=== PATIENT | male | born 1980 | race Caucasian/White ===

== ENCOUNTER 2023-08-31 15:35 | Outpatient (CLI) | payer BC, OTHER ==
[~2023-08-31] VITALS: Ht 172.7 cm; Wt 90.7 kg
[2023-08-31] MEDS ORDERED: albuterol 2.5 MG/3 ML nebule NEB ONE (15:55)
[2023-08-31 16:04] VITALS: PULSE 92; RESP 15; O2SAT 99
== END 2023-08-31 23:59 | disposition home or self-care (01) ==
LOC: RT 15:35
PROVIDERS: ATTEND Physician Assistant Medical
DX: R94.2 Abnormal results of pulmonary function studies (principal); R05.9 Cough, unspecified; R06.2 Wheezing
CPT/HCPCS: 94060; 94760

== ENCOUNTER 2024-01-17 08:38 | Day surgery (SDC) | payer BC ==
[2024-01-10 16:10] LABS: BASOPHILS # (AUTO) 0.1 X10'3 (0-0.2); BASOPHILS % (AUTO) 0.8 % (0-1); EOSINOPHILS # (AUTO) 0.5 X10'3 (0-0.9); EOSINOPHILS % (AUTO) 5.7 % (0-6); LYMPHOCYTES # (AUTO) 3.4 X10'3 (1.1-4.8); LYMPHOCYTES % (AUTO) 38.5 % (21-51); MEAN CORPUSCULAR HGB CONC 33.4 g/dL (33.0-36.5); MEAN CORPUSCULAR VOLUME 83.9 FL (78-98); MEAN PLATELET VOLUME 6.2 FL (7.4-10.4); MONOCYTES # (AUTO) 0.6 X10'3 (0-0.9); MONOCYTES % (AUTO) 6.5 % (2-12); NEUTROPHILS # (AUTO) 4.2 X10'3 (1.8-7.7); NEUTROPHILS % (AUTO) 48.5 % (42-75); PRE OP HEMATOCRIT 43.4 % (42.0-52.0); PRE OP HEMOGLOBIN 14.5 g/dL (14.0-17.9); PRE OP PLATELET COUNT 303 X10'3 (140-440); PRE OP WHITE BLOOD COUNT 8.7 10'3 (4.8-10.8); RED BLOOD COUNT 5.17 X10'6 (4.70-6.10); RED CELL DISTRIBUTION WIDTH 14.9 % (11.5-14.5)
[2024-01-10 16:33] LABS: ALBUMIN/GLOBULIN RATIO 1.2 (1.1-1.5); ALKALINE PHOSPHATASE 39 IU/L (46-116); BLOOD UREA NITROGEN 13 MG/DL (7-18); CALCIUM 9.2 MG/DL (8.5-10.1); CHLORIDE 106 MMOL/L (99-107); CREATININE 0.81 MG/DL (0.60-1.10); PRE OP ALT 17 U/L (30-65); PRE OP ANION GAP 4 (8-16); PRE OP AST 12 U/L (10-37); PRE OP BILIRUB, TOTAL 0.7 MG/DL (0.0-1.0); PRE OP GLUCOSE 89 MG/DL (70-104); PRE OP POTASSIUM 3.6 MMOL/L (3.4-5.1); PRE OP SODIUM 141 MMOL/L (135-145); TOTAL CARBON DIOXIDE 31.2 MMOL/L (24-32); TOTAL PROTEIN 7.4 G/DL (6.4-8.2); eGFR > 90 ML/MIN
[~2024-01-17] VITALS: Ht 172.7 cm; Wt 88.8 kg
[2024-01-17] VITALS (14 sets, daily range): BP systolic 115–138; BP diastolic 76–86; PULSE 67–110; RESP 12–26; TEMP 98.2; O2SAT 93–98
[2024-01-17] MEDS: cefazolin 2gm/D5W 100mL 100 ML IV ONE (05:30)
[~2024-01-17 08:38] MED LIST: CALCIUM GUMMY PO; ESOM20CA PO; FIBER GUMMY PO; LORA10CA PO; MULTIVITAMIN GUMMIES PO; ringers solution, lacted 1,000 ML IV SCH
[2024-01-17] MEDS ORDERED: morphine 4 MG/ML inj SYRINge IV PRN (08:50)
[2024-01-17] MEDS ORDERED: fentaNYL/PF 50MCG/1 ML 2ML syringe IV PRN ×2 (08:50)
[2024-01-17] MEDS ORDERED: labetalol 20mg/4ml (5mg/ml) syringe IV PRN (08:50)
[2024-01-17] MEDS ORDERED: morphine 2 MG/ML inj. syringe IV PRN (08:50)
[2024-01-17] MEDS ORDERED: hydrALAZINE 20mg/ml inj. IV PRN (08:50)
[2024-01-17] MEDS ORDERED: ondansetron/PF 4mg/2ml inj IV PRN (08:50)
[2024-01-17] MEDS: ringers solution, lacted 1,000 ML IV SCH (09:06)
[2024-01-17] MEDS: famotidine 20mg tablet PO ONE (09:06)
[2024-01-17] MEDS ORDERED: sevoflurane 250ml liquid IH ONE (09:42)
[2024-01-17] MEDS ORDERED: BUPIVAcaine/PF 2.5mg/ml (0.25%) 10ml vial ONE ×2 (09:43→09:53)
[2024-01-17] MEDS ORDERED: LIDOcaine 1% (10mg/ml)w/preservative inj. 20ml MDV ONE (09:43)
[2024-01-17] MEDS ORDERED: ondansetron/PF 4mg/2ml inj ONE (10:00)
[2024-01-17] MEDS ORDERED: propofol inj 20 ML IV ONE (10:00)
[2024-01-17] MEDS ORDERED: LIDOcaine 2% (20mg/ml) 5ml vial ONE (10:00)
[2024-01-17] MEDS ORDERED: rocuronium 10mg/ml inj IV ONE ×2 (10:00→10:02)
[2024-01-17] MEDS ORDERED: fentaNYL/PF 50MCG/1 ML 2ML syringe ONE ×2 (10:01→11:52)
[2024-01-17] MEDS ORDERED: midazolam 1 mg/ML 2ml injection ONE (10:02)
[2024-01-17] MEDS ORDERED: acetaminophen 1,000mg/100ml IV 100 ML IV ONE (10:03)
[2024-01-17] MEDS ORDERED: phenylephrine 10mg/ml inj. -priapism dosing ONE (10:07)
[2024-01-17] MEDS ORDERED: ePHEDrine 50MG/ML INJ. ONE (10:08)
[2024-01-17] MEDS: LIDOcaine 1% 30ml preserv. free vial IJ ONE (10:23)
[2024-01-17] MEDS ORDERED: neostigmine methylsulfate 1 MG/ML 10ml vial ONE (10:45)
[2024-01-17] MEDS ORDERED: glycopyrrolate 0.2mg/ml inj ONE (10:45)
[2024-01-17] MEDS ORDERED: oxyCODONE/APAP 5-325mg tablet PO PRN (13:10)
[2024-01-17] MEDS ORDERED: ketorolac trometh. 30mg/ml inj. IM ONE (14:15)
[2024-01-17] MEDS: ketorolac trometh. 30mg/ml inj. IV ONE (14:41)
== END 2024-01-17 14:56 | disposition home or self-care (01) ==
LOC: PAS 08:38
PROVIDERS: ATTEND Surgery
DX: K44.9 Diaphragmatic hernia without obstruction or gangrene (principal); K21.9 Gastro-esophageal reflux disease without esophagitis; F41.9 Anxiety disorder, unspecified; F32.A Depression, unspecified; J45.909 Unspecified asthma, uncomplicated; F43.10 Post-traumatic stress disorder, unspecified; Z79.899 Other long term (current) drug therapy; Z90.49 Acquired absence of other specified parts of digestive tract; Z98.890 Other specified postprocedural states; Z88.8 Allergy status to other drugs, medicaments and biological substances; Z80.0 Family history of malignant neoplasm of digestive organs
CPT/HCPCS: 36415; 43282; 71045; 80053; 82948; 85025; 93005; C1781; J0131; J0690; J1885; J2250; J2405; J2704; J2710; J3010; J3490; J7030; J7120; S2900; Z7506; Z7508; Z7512; A4615; A4618; J1100; J2370; J2371